=== PATIENT | female | born 1975 | race Two or more races ===

== ENCOUNTER 2018-10-27 18:44 | Emergency (ER) | payer OTHER ==
[~2018-10-27] VITALS: Ht 172.7 cm; Wt 79.8 kg
[2018-10-27] MEDS ORDERED: GABAPENTIN300 MG (19:05)
[2018-10-27] MEDS ORDERED: NEURONTIN300 MG (19:05)
[2018-10-27] MEDS ORDERED: PERCOCET 2.5-31 EACH (19:05)
[2018-10-27] MEDS ORDERED: SINGULAIR4 M1 (19:06)
[2018-10-27] MEDS ORDERED: CYCLOBENZAPRINE10 MG (19:06)
[2018-10-27] MEDS ORDERED: CHILDREN'S FLO9.9 ML (19:08)
== END 2018-10-27 23:43 | disposition home or self-care (01) ==
LOC: ER 18:44
DX: M50.30 Other cervical disc degeneration, unspecified cervical region (principal)

== ENCOUNTER 2020-03-11 15:23 | Outpatient (CLI) | payer OTHER ==
[~2020-03-11 15:23] MED LIST: CHILDREN'S FLO9.9 ML; CYCLOBENZAPRINE10 MG; GABAPENTIN300 MG; NEURONTIN300 MG; PERCOCET 2.5-31 EACH; SINGULAIR4 M1
== END 2020-03-11 15:34 | disposition home or self-care (01) ==
LOC: RAD 15:23
PROVIDERS: ATTEND Physical Medicine & Rehabilitation
DX: M54.2 Cervicalgia (principal)

== ENCOUNTER 2020-06-15 22:10 | Emergency (ER) | payer OTHER ==
[~2020-06-15] VITALS: Ht 172.7 cm; Wt 77.1 kg
[2020-06-15] MEDS ORDERED: XYZAL5 MG (22:17)
[2020-06-15] MEDS ORDERED: SKELAXIN800 MG (22:18)
== END 2020-06-16 03:37 | disposition home or self-care (01) ==
LOC: ER 22:10
DX: N83.292 Other ovarian cyst, left side (principal); D25.1 Intramural leiomyoma of uterus; R10.12 Left upper quadrant pain; R10.32 Left lower quadrant pain

== ENCOUNTER 2022-09-23 08:12 | Emergency (ER) | payer OTHER ==
[~2022-09-23] VITALS: Ht 172.7 cm; Wt 74.8 kg
[~2022-09-23 08:12] MED LIST changes: +SKELAXIN800 MG; +XYZAL5 MG
== END 2022-09-23 10:57 | disposition home or self-care (01) ==
LOC: ER 08:12
DX: J22 Unspecified acute lower respiratory infection (principal); Z88.6 Allergy status to analgesic agent; Z20.822 Contact with and (suspected) exposure to COVID-19

== ENCOUNTER → 2023-04-09 | Emergency (ER) | payer OTHER | END | disposition left against medical advice (07) | LOC: ER 15:09 | DX: Z53.21 Procedure and treatment not carried out due to patient leaving prior to being seen by health care provider (principal) ==